=== PATIENT | female | born 1975 | race Caucasian/White ===

== ENCOUNTER → 2017-12-28 | Outpatient (CLI) | payer OTHER ==
[~2017-12-28] MED LIST: GADOBUTROL 10 ML VIAL IVP ONE
== END ==
LOC: FIMAGING 12:15
PROVIDERS: ATTEND Orthopaedic Surgery
DX: M62.89 Other specified disorders of muscle (principal)
CPT/HCPCS: A9585

== ENCOUNTER → 2018-04-02 | Outpatient (CLI) | payer OTHER | LOC: FIMAGING 09:10 | PROVIDERS: ATTEND Nurse Practitioner Women's Health | DX: Z12.31 Encounter for screening mammogram for malignant neoplasm of breast (principal) ==

== ENCOUNTER 2018-04-24 20:14 | Emergency (ER) | payer OTHER ==
--- NOTE | 2018-04-24 21:07 | EDPHY ---
H & P Time Seen by Provider: 04/24/18 21:06 HPI/ROS: CHIEF COMPLAINT: Right leg swelling HISTORY OF PRESENT ILLNESS: The patient presents the ED for evaluation of a 1 week history of right leg swelling. The patient denies prior history of PE or DVT. The patient does not smoke. She is not on oral anticoagulants. She has no history of a recent fall or injury. The patient has no significant past medical history. The patient denies any acute numbness or weakness. The patient reports she has had approximately 3 year history of a mass in her right groin that she was told by a [facility] physician was muscular hypertrophy. She denies any complaints of acute groin pain. She reports the mass is been stable in size. REVIEW OF SYSTEMS: A comprehensive 10 point review of systems is otherwise negative aside from elements mentioned in the history of present illness. Source: Patient Exam Limitations: No limitations - Medical/Surgical History PMH: Past medical history: Noncontributory - Family History Significant Family History: No pertinent family hx - Social History Smoking Status: Never smoked - Physical Exam Exam: General Appearance: Alert, no distress Eyes: Pupils equal and round no pallor or injection ENT, Mouth: Mucous membranes moist Respiratory: There are no retractions, lungs are clear to auscultation Cardiovascular: Regular rate and rhythm Gastrointestinal: Abdomen is soft and nontender, no masses, bowel sounds normal Neurological: Intact neurologic exam noted to the right lower extremity Skin: Warm and dry, no rashes Musculoskeletal: Neck is supple nontender Extremities: Asymmetric swelling and right calf tenderness appreciated. 2+ dorsalis pedis and posterior tibial pulse noted. Palpable firm mass noted in the right inguinal area Constitutional: Initial Vital Signs Temperature (C) 36.7 C 04/24/18 20:14 Heart Rate 69 04/24/18 20:14 Respiratory Rate 16 04/24/18 20:14 Blood Pressure 143/83 H 04/24/18 20:14 O2 Sat (%) 97 04/24/18 20:14 O2 Delivery Mode Room Air Allergies/Adverse Reactions: Sulfa (Sulfonamide Antibiotics) Allergy (Verified 04/24/18 22:19) Home Medications: Medication Instructions Recorded NK [No Known Home Meds] 04/24/18 Medical Decision Making - Diagnostics Imaging Results: Right lower extremity ultrasound: No evidence of DVT. Images reviewed by myself and discussed with radiologist. Patient is noted to have a very large mass of undetermined origin in her right inguinal area. It is vascular however not appearing to cause any compression of the femoral vein or artery. ED Course/Re-evaluation: The patient presents the ED for evaluation of asymmetric right leg swelling for the past week. The patient's ultrasound demonstrates no evidence of a DVT. The patient is noted to have a mass in her right groin which she reports is chronic in nature and not increased in size. Given the undetermined nature of this mass on ultrasound I did tell her it was imperative that she follow up with a surgeon for further evaluation. She has been given the contact number of our on-call general surgeon Dr. Stacy Vera. The patient will be instructed to return to the ED for increased pain, swelling , redness, numbness or weakness. She has been advised to have a repeat ultrasound in 2 weeks for any ongoing symptoms to ensure a DVT is not developed. Differential Diagnosis: Differential diagnosis considered includes DVT, cellulitis, abscess, ruptured Greene cyst Departure - Departure Disposition: Home, Routine, Self-Care Clinical Impression: Right leg swelling, Right groin mass Condition: Good Instructions: Leg Edema (ED) Additional Instructions: 1. Please repeat your ultrasound in 2 weeks if you are having any ongoing calf pain or swelling. 2. Return to the ED sooner for increased pain, swelling, numbness or weakness. 3. I do recommend close follow up with our on-call general surgeon for further evaluation of the mass you have had in your right groin area for the past 3 years. You have been given the contact number of our on-call surgeon Dr. Stacy Vera. Please contact her office tomorrow to schedule a follow-up appointment with her or one of her partners. Referrals: Stacy Vera MD [Medical Doctor] - As per Instructions
[2018-04-24 23:01] VITALS: BP 135/86
== END 2018-04-24 23:00 | disposition home or self-care (01) ==
DX: M79.89 Other specified soft tissue disorders (principal); R19.00 Intra-abdominal and pelvic swelling, mass and lump, unspecified site

== ENCOUNTER 2018-10-30 05:37 | Day surgery (SDC) | payer OTHER ==
--- NOTE | 2018-10-29 17:18 | PDGENHP ---
History and Physical - Chief Complaint Abnormal uterine bleeding - History of Present Illness 43 yo premenopausal female - (two SVDs) - who I met in clinic regarding ongoing issues with AUB and menorrhagia. Had normal pap this past Spring. She had an EBX with Tina [facility] [employer] in our office showing no atypia or malignancy. She has tried OCPs in the past as well as Mirena IUD. Interested in ablation. 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 No further tx needed per onc. - Surgical History Additional surgical history: Excision right upper thigh soft tissue mass 06/2018 , Torn labrum and repair L shoulder 2017, Brow lift, eye tx ptosis 2009 - Family History Positive for: non-pertinent - Social History Smoking Status: Never smoked Review of Systems Review of Systems: ROS: 10pt was reviewed & negative except for what was stated in HPI & below Physical Exam Physical Exam: NAD Belly soft, NT, ND Assessment & Plan Assessment: Preop: Diagnostic hysteroscopy, endometrial sampling, Court endometrial ablation - No abx needed, no preop labs. - Routine preop orders. - Plan is home from PACU. CAROLE
[2018-10-30] MEDS ORDERED: OPIUM/BELLADONNA ALKALO SUPP PR PRN (05:52)
[2018-10-30] MEDS ORDERED: LR 1,000 ML IV ONE (05:53)
--- NOTE | 2018-10-30 07:14 | PDANEPAE ---
ANE History of Present Illness abnormal uterine bleeding, here for hysteroscopy and ablation ANE Past Medical History - Cardiovascular History Hx Hypertension: No Hx Arrhythmias: No Hx Chest Pain: No Hx Coronary Artery / Peripheral Vascular Disease: No Hx CHF / Valvular Disease: No Hx Palpitations: No - Pulmonary History Hx COPD: No Hx Asthma/Reactive Airway Disease: No Hx Recent Upper Respiratory Infection: No Hx Oxygen in Use at Home: No Hx Sleep Apnea: No Sleep Apnea Screening Result - Last Documented: Negative - Neurologic History Hx Cerebrovascular Accident: No Hx Seizures: No Hx Dementia: No - Endocrine History Hx Diabetes: No - Renal History Hx Renal Disorders: No - Liver History Hx Hepatic Disorders: No - Neurological & Psychiatric Hx Hx Neurological and Psychiatric Disorders: No - Cancer History Hx Cancer: Yes Cancer History Comment: sarcoma - Congenital Disorder History Hx Congenital Disorders: No - GI History Hx Gastrointestinal Disorders: No - Other Health History Other Health History: endometriosis - Chronic Pain History Chronic Pain: No - Surgical History Prior Surgeries: 06/25/18 radical resection of sarcom leg and abdomen ANE Review of Systems Review of Systems: - Exercise capacity METS (RN): 6 METS ANE Patient History - Allergies Allergies/Adverse Reactions: Sulfa (Sulfonamide Antibiotics) Allergy (Verified 04/24/18 22:19) - Home Medications Home Medications: NK [No Known Home Meds] 04/24/18 [Last Taken Unknown] - NPO status NPO Since - Liquids (Date): 10/29/18 NPO Since - Liquids (Time): 22:00 NPO Since - Solids (Date): 10/29/18 NPO Since - Solids (Time): 21:00 - Smoking Hx Smoking Status: Never smoked - Family Anes Hx Family Hx Anesthesia Complications: none ANE Labs/Vital Signs - Vital Signs Blood Pressure: 113/81 Heart Rate: 68 Respiratory Rate: 16 O2 Sat (%): 95 Height: 172.72 cm Weight: 77.111 kg ANE Physical Exam - Airway Neck exam: FROM Mallampati Score: Class 1 Mouth exam: normal dental/mouth exam - Pulmonary Pulmonary: no respiratory distress - Cardiovascular Cardiovascular: regular rate and rhythym - ASA Status ASA Status: II ANE Anesthesia Plan Anesthesia Plan: GA w LMA (gets nauseated, will pre-treat for PONV) Total IV Anesthesia: Yes
[2018-10-30] MEDS ORDERED: MIDAZOLAM 2 MG/2 ML VIAL IVP ONE (07:15)
[2018-10-30] MEDS ORDERED: SCOPOLAMINE HYDROBROMIDE 1 MG/3 DAYS PATCH TD SCH (07:15)
[2018-10-30] MEDS ORDERED: BUPIVACAINE 0.25% 10 ML SDV ONE (07:25)
[2018-10-30] MEDS ORDERED: SILVER NITRATE APPLICATOR 1 APPL TP ONE (07:25)
[2018-10-30] MEDS ORDERED: BUPIVACAINE/EPI 0.25% 30 ML SDV ONE (07:26)
[2018-10-30] MEDS ORDERED: OPIUM/BELLADONNA ALKALO SUPP PR ONE (07:26)
[2018-10-30] MEDS ORDERED: EPINEPHrine 1 MG/ML INJ ONE (07:27)
[2018-10-30] MEDS ORDERED: PROPOFOL/EMULSION 500 MG/50 ML BOTTLE IV ONE (07:58)
[2018-10-30] MEDS ORDERED: ONDANSETRON 4 MG/2 ML VIAL ONE (07:58)
[2018-10-30] MEDS ORDERED: DEXAMETHASONE 4 MG/ML VIAL ONE (07:58)
[2018-10-30] MEDS ORDERED: LIDOCAINE 2% 5 ML SDV ONE (07:58)
[2018-10-30] MEDS ORDERED: fentaNYL 100 MCG/2 ML INJ ONE (07:58)
[2018-10-30] MEDS ORDERED: PHENYLEPHRINE HCL 100 MCG/ML SYR ONE (07:58)
[2018-10-30] MEDS ORDERED: HYDROmorphONE/DILAUDID 2 MG/ML INJ IVP PRN (08:28)
[2018-10-30] MEDS ORDERED: fentaNYL 100 MCG/2 ML INJ IVP PRN (08:28)
[2018-10-30] MEDS ORDERED: LR 500 ML IV PRN (08:28)
[2018-10-30] MEDS ORDERED: MEPERIDINE 25 MG/0.5 ML AMP IVP PRN (08:28)
[2018-10-30] MEDS ORDERED: DIAZEPAM 5 MG/ML 1 ML SYR IVP PRN (08:28)
[2018-10-30] MEDS ORDERED: ACETAMINOPHEN 500 MG TAB PO PRN (08:28)
[2018-10-30] MEDS ORDERED: oxyCODONE IR 5 MG TAB PO PRN (08:28)
[2018-10-30] MEDS ORDERED: NALOXONE HCL 0.4 MG/ML INJ IVP PRN (08:28)
[2018-10-30] MEDS ORDERED: KETOROLAC 30 MG/1 ML SDV ONE (08:30)
[2018-10-30] MEDS ORDERED: PROPOFOL 200 MG/20 ML VIAL ONE (08:42)
--- NOTE | 2018-10-30 09:02 | SUROPNOTE ---
[facility] Operative Report - Surgery Date of Operation: 10/30/18 Surgeon: Dash Taylor [employer] Operator: None Anesthesiologist: Negin Perez Anesthesia: GET(General Endotracheal), IV Sedation (TIVA) Pre-op Diagnosis: DUB Post-op Diagnosis: Same Procedure: Diagnostic hysteroscopy, endometrial sampling, endometrial sampling Findings: Normal uterine cavity, NEFG Inf/Abcess present in the surg proc area at time of surgery?: No EBL: Minimal Total fluids administered: Deficit 100cc Complications: None Specimen(s): Endometrial sampling Technique:
[2018-10-30 11:14] VITALS: BP 118/74
--- NOTE | 2018-10-30 11:54 | POSTANESTH ---
Post Anesthetic Evaluation Cardiovascular Status: Normal, Stable Respiratory Status: Normal, Stable Level of Consciousness/Mental Status: Can Participate in Eval Pain Control: Adequate, Prn Tx Ordered Nausea/Vomiting Control: Adequate, Prn Tx Ordered Complications Possibly Related to Anesthesia: None Noted
[2018-11-02] MEDS ORDERED: PATCH REMOVAL 1 EA PATCH TD SCH (07:16)
== END 2018-10-30 11:08 | disposition home or self-care (01) ==
LOC: F3N 05:37 → UNDOADMOB 05:37 → FSGY 05:37 → EDSTATUS 07:15 → UNDODISOB 11:08 → FSGY 11:08
PROVIDERS: ATTEND Obstetrics & Gynecology
DX: N93.8 Other specified abnormal uterine and vaginal bleeding (principal); N92.0 Excessive and frequent menstruation with regular cycle; Z85.831 Personal history of malignant neoplasm of soft tissue; Z88.2 Allergy status to sulfonamides
CPT/HCPCS: 58563; C1782; J0171; J1100; J1885; J2250; J2370; J2405; J2704; J3010

== ENCOUNTER → 2019-05-13 | Outpatient (CLI) | payer OTHER | LOC: FIMAGING 13:51 ==